=== PATIENT | male | born 1960 | race Caucasian/White ===

== ENCOUNTER 2018-02-06 12:15 | Emergency (ER) | payer OTHER ==
[2018-02-06] MEDS: LIDOCAINE 1% (MDV) 20 ML INJ SC (12:55)
[2018-02-06] MEDS: HYDROCODONE/APAP (5/325) TAB PO (12:56)
== END 2018-02-06 13:45 | disposition home or self-care (01) ==
LOC: FTE 12:15
DX: S81.011A Laceration without foreign body, right knee, initial encounter (principal); W26.8XXA Contact with other sharp object(s), not elsewhere classified, initial encounter; Y92.9 Unspecified place or not applicable
CPT/HCPCS: 12002; 73562; 99283-25